=== PATIENT | male | born 1980 | race Caucasian/White ===

== ENCOUNTER 2016-11-21 20:24 | Emergency (ER) | payer OTHER ==
[~2016-11-21 20:24] MED LIST: Sodium Chloride 0.9% 1,000 ML BAG ONE; Sodium Chloride 0.9% 100 ML BAG ONE
[2016-11-21] MEDS ORDERED: Ketorolac Tromethamine 30 MG/ML VIAL ONE (21:08)
[2016-11-21] MEDS ORDERED: Ondansetron HCl/PF 4 MG/2 ML Vial ONE ×2 (21:08→23:36)
[2016-11-21] MEDS ORDERED: Promethazine HCl 25 MG/ML VIAL ONE (22:12)
[2016-11-21] MEDS ORDERED: Tamsulosin HCl 0.4 MG CAP ONE (23:02)
--- NOTE | 2016-11-22 02:05 | CT ---
CT OF ABDOMEN AND PELVIS PERFORMED WITHOUT CONTRAST ENHANCEMENT: HISTORY: Right flank pain. FINDINGS: CT OF ABDOMEN PERFORMED WITHOUT CONTRAST ENHANCEMENT: The lung bases are clear. The liver, spleen, and pancreas regions appear unremarkable. The gallbladder is slightly contracted . Right and left adrenal glands are normal in size and appearance. There is an upper pole right renal calculus which measures 7-8 mm in size. There is some minimal right-sided hydronephrosis related t o ureteropelvic junction calculus which measures 6 mm. The ureter distal to this level is nondilate d. There is no significant periaortic or mesenteric lymphadenopathy. CT OF PELVIS PERFORMED WITHOUT CONTRAST ENHANCEMENT: The appendix is normal. There is no evidence of adenopathy, mass, or free fluid. IMPRESSION: A 6-mm right ureteropelvic junction calculus associated with some mild right-sided hydronephrosis. There is also a 7-8 mm upper pole right renal calculus present. POS: [facility]
[2016-11-22 09:24] LABS: Anion Gap 15 mmol/L (10-20); BUN (Urea Nitrogen) 12 mg/dL (8.9-20.6); Calc. Creatinine Clearance 0 mL/min (70-130); Calcium 9.4 mg/dL (7.8-10.44); Carbon Dioxide 25 mmol/L (22-29); Chloride 102 mmol/L (98-107); Estimated GFR-MDRD 59; Glucose 147 mg/dL (70-105); Sodium 138 mmol/L (136-145)
[2016-11-22 09:45] LABS: Bacteria/HPF Rare-Few HPF (None Seen); Bilirubin Negative (Negative); Blood, Urine Large (Negative); Clarity Clear (Clear); Glucose, Urine (Dipstick) Negative (Negative); Leukocyte Negative (Negative); Nitrite Negative (Negative); Protein, Urine (Dipstick) Trace mg/dL (Neg-Trace); RBC/HPF 21-50 HPF (0-3); Specific Gravity, Urine 1.025 (1.005-1.030); Urobilinogen 0.2 mg/dL (0.2-1.0)
[2016-11-22 09:46] LABS: Hemoglobin 14.8 g/dL (14.0-18.0); Mean Corpuscular HGB CONC 34.8 g/dL (32.0-36.0); Mean Corpuscular Hemoglobin 28.9 pg (27.0-31.0); Mean Platelet Volume 8.1 fL (7.4-10.4); Platelet Count 211 thou/uL (130-400); RBC Distribution Width 12.2 % (11.5-14.5); Red Blood Cell (RBC) Count 5.12 mill/uL (4.70-6.10); White Blood Cell (WBC) Count 8.4 thou/uL (4.8-10.8)
== END 2016-11-21 23:45 | disposition home or self-care (01) ==
LOC: MADERS 20:24
DX: N13.2 Hydronephrosis with renal and ureteral calculous obstruction (principal)
CPT/HCPCS: 36415; 74176; 80048; 81001; 85027; 87086; 96361; 96374; 96375; 96376; J1170; J1885; J2405; J2550; J7050

== ENCOUNTER 2017-03-11 08:01 | Outpatient (CLI) | payer OTHER ==
[2017-03-11 08:17] LABS: #Eosinphils 0.1 thou/uL (0.0-0.7); #Lymphocytes 1.6 thou/uL (1.20-3.40); #Monocytes 0.4 thou/uL (0.11-0.59); #Neutrophils 2.6 thou/uL (1.40-6.50); %Basophils 0.9 % (0.0-1.0); %Eosinophils 1.7 % (0.0-10.0); %Lymphocytes 33.8 % (21.0-51.0); %Monocytes 9.2 % (0.0-10.0); %Neutrophils 54.3 % (42.0-75.0); Hemoglobin 14.7 g/dL (14.0-18.0); Mean Corpuscular HGB CONC 33.2 g/dL (32.0-36.0); Mean Corpuscular Hemoglobin 27.7 pg (27.0-31.0); Mean Corpuscular Volume 83.4 fl (80.0-94.0); Mean Platelet Volume 8.5 fL (7.4-10.4); Platelet Count 164 thou/uL (130-400); RBC Distribution Width 12.6 % (11.5-14.5); Red Blood Cell (RBC) Count 5.31 mill/uL (4.70-6.10); White Blood Cell (WBC) Count 4.7 thou/uL (4.8-10.8)
[2017-03-11 08:36] LABS: ALT (SGPT) 26 U/L (8-55); AST (SGOT) 20 U/L (5-34); Albumin 4.1 g/dL (3.5-5.0); Alkaline Phosphatase 85 U/L (40-150); Anion Gap 12 mmol/L (10-20); BUN (Urea Nitrogen) 15 mg/dL (8.9-20.6); Bilirubin, Total 0.3 mg/dL (0.2-1.2); Calc. Creatinine Clearance 0 mL/min (70-130); Calcium 9.1 mg/dL (7.8-10.44); Carbon Dioxide 23 mmol/L (22-29); Cardiac Risk 4.9 (Less than 4.5); Chloride 109 mmol/L (98-107); Cholesterol 215 mg/dl (< 200 Desired); Estimated GFR-MDRD Greater than 90; Globulin 3.4 g/dL (2.4-3.5); Glucose 106 mg/dL (70-105); HDL Cholesterol 44 mg/dL (>60 Neg Risk); LDL Cholesterol, Calculated 133 mg/dL; Potassium 4.1 mmol/L (3.5-5.1); Protein, Total 7.5 g/dL (6.0-8.3); Sodium 140 mmol/L (136-145); Triglycerides 190 mg/dL (Less than 150)
[2017-03-11 08:45] LABS: Hemoglobin A1c 5.3 % (4.0-6.0)
[2017-03-11 09:15] LABS: Thyroid Stimulating Hormone 4.3187 uIU/mL (0.35-4.94); Vitamin D, 25 Hydroxy 22.2 ng/ml (> 30.0)
== END 2017-03-11 08:02 ==
LOC: MADLABBHPM 08:01
PROVIDERS: ATTEND Family Medicine
DX: Z00.00 Encounter for general adult medical examination without abnormal findings (principal)
CPT/HCPCS: 36415; 80053; 80061; 82306; 83036; 84443; 85025

== ENCOUNTER 2017-07-03 20:50 | Emergency (ER) | payer BC, OTHER ==
[2017-07-03 21:13] LABS: #Basophils 0.1 thou/uL (0.0-0.2); #Eosinphils 0.1 thou/uL (0.0-0.7); #Lymphocytes 2.5 thou/uL (1.20-3.40); #Monocytes 0.5 thou/uL (0.11-0.59); #Neutrophils 3.5 thou/uL (1.40-6.50); %Basophils 1.1 % (0.0-1.0); %Eosinophils 1.3 % (0.0-10.0); %Lymphocytes 37.9 % (21.0-51.0); %Monocytes 7.5 % (0.0-10.0); %Neutrophils 52.2 % (42.0-75.0); Hemoglobin 14.5 g/dL (14.0-18.0); Mean Corpuscular HGB CONC 34.5 g/dL (32.0-36.0); Mean Corpuscular Volume 84.1 fl (80.0-94.0); Mean Platelet Volume 8.4 fL (7.4-10.4); Platelet Count 187 thou/uL (130-400); RBC Distribution Width 12.3 % (11.5-14.5); Red Blood Cell (RBC) Count 4.99 mill/uL (4.70-6.10); White Blood Cell (WBC) Count 6.6 thou/uL (4.8-10.8)
[2017-07-03 21:22] LABS: INR-International Normal Ratio 1.1; PTT 27.3 SEC (22.9-36.1); Prothrombin Time 14.5 SEC (12.0-14.7)
[2017-07-03 21:26] LABS: ALT (SGPT) 79 U/L (8-55); AST (SGOT) 74 U/L (5-34); Albumin 4.4 g/dL (3.5-5.0); Alkaline Phosphatase 84 U/L (40-150); Anion Gap 16 mmol/L (10-20); BUN (Urea Nitrogen) 16 mg/dL (8.9-20.6); Bilirubin, Total 0.3 mg/dL (0.2-1.2); CK (CPK) 356 U/L (30-200); Calc. Creatinine Clearance 0 mL/min (70-130); Calcium 8.9 mg/dL (7.8-10.44); Carbon Dioxide 20 mmol/L (22-29); Chloride 111 mmol/L (98-107); Estimated GFR-MDRD 56; Glucose 109 mg/dL (70-105); Potassium 3.8 mmol/L (3.5-5.1); Protein, Total 7.4 g/dL (6.0-8.3); Sodium 143 mmol/L (136-145)
[2017-07-03 21:28] LABS: CKMB 5.6 ng/mL (0-6.6); Troponin I 0.101 ng/mL (< 0.028)
[2017-07-03] MEDS ORDERED: Enoxaparin Sodium 40 MG/0.4 ML SYRINGE ONE (21:31)
[2017-07-03] MEDS ORDERED: Enoxaparin Sodium 60 MG/0.6 ML SYRINGE ONE (21:31)
--- NOTE | 2017-07-03 22:23 | RAD ---
ONE VIEW CHEST: History: Pain. Comparison: None. FINDINGS: Normal cardiac silhouette. Pulmonary vessels and hilum are normal. Costophrenic angles are clear. No mass. No consolidation. No pneumothorax or osseous abnormalities. IMPRESSION: No acute cardiopulmonary process. POS: [facility]
== END 2017-07-03 21:44 | disposition short-term general hospital (02) ==
LOC: MADERS 20:50
DX: I21.4 Non-ST elevation (NSTEMI) myocardial infarction (principal)
CPT/HCPCS: 71010; 80053; 82553; 83880; 84484; 85025; 85610; 85730; 93005; 96372; J1650

== ENCOUNTER 2018-01-02 18:49 | Emergency (ER) | payer BC ==
[2018-01-02] MEDS ORDERED: Adacel (T-DAP) 0.5 ML VIAL ONE (19:13)
[2018-01-02] MEDS ORDERED: Lidocaine 1% 20 ML MDV ONE (19:13)
[2018-01-02] MEDS ORDERED: cefTRIAXone\\ROCEPHIN 1 GM VIAL ONE ×2 (19:13→19:15)
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
== END 2018-01-02 19:48 | disposition home or self-care (01) ==
LOC: MADERS 18:49
DX: L03.012 Cellulitis of left finger (principal); Z79.899 Other long term (current) drug therapy
CPT/HCPCS: 90471; 90715; 96372; J0696; J2001

== ENCOUNTER 2019-12-03 14:21 | Outpatient (CLI) | payer BC ==
--- NOTE | 2019-12-03 14:51 | RAD ---
Exam: Right knee 4 views: HISTORY: Right knee pain without history of trauma COMPARISON: None FINDINGS: Possible small amount of joint fluid. No evidence for fracture, dislocation, or other significant acute osseous abnormality. IMPRESSION: No significant acute process.
--- NOTE | 2019-12-03 14:52 | RAD ---
RIGHT FOOT 3 VIEWS: HISTORY: Plantar fasciitis. COMPARISON: None. FINDINGS: Lisfranc interval is maintained. No acute displaced fracture or malalignment. Moderate-sized plantar calcaneal spur. Bipartite medial hallux sesamoid. Mild mid foot degenerative changes. IMPRESSION: Chronic findings. No acute osseous abnormality. POS: [facility]
--- NOTE | 2019-12-03 14:54 | RAD ---
LEFT FOOT 3 VIEWS: HISTORY: Plantar fasciitis. FINDINGS/IMPRESSION: No fracture, subluxation, or bony destruction is seen. There are plantar and posterior calcaneal spu rs. POS: [facility]
== END 2019-12-03 14:22 | disposition home or self-care (01) ==
LOC: MADRAD 14:21
PROVIDERS: ATTEND Family Medicine
DX: M72.2 Plantar fascial fibromatosis (principal); M25.561 Pain in right knee; M77.32 Calcaneal spur, left foot

== ENCOUNTER 2020-11-17 11:05 | Emergency (ER) | payer BC, SELFPAY ==
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
== END 2020-11-17 13:45 | disposition home or self-care (01) ==
LOC: MADERS 11:05
DX: S00.81XA Abrasion of other part of head, initial encounter (principal); V89.2XXA Person injured in unspecified motor-vehicle accident, traffic, initial encounter
CPT/HCPCS: 70450